=== PATIENT | male | born 1990 | race Caucasian/White ===

== ENCOUNTER 2018-09-11 10:54 | Emergency (ER) | payer BC ==
[~2018-09-11] VITALS: Ht 170.2 cm; Wt 83.9 kg
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
[2018-09-11] MEDS ORDERED: LEXAPRO (11:04)
[2018-09-11] MEDS ORDERED: CLOBETASOL (11:04)
[2018-09-11] MEDS ORDERED: DESONIDE (11:04)
--- NOTE | 2018-09-11 11:05 | NUR ---
JACKIE NICOLAS AT BEDSIDE FOR MSE.
[2018-09-11] MEDS ORDERED: TETRACAINE HCL 0.5% OPHT DROP 2 ML BOTTLE ONE (11:10)
[2018-09-11] MEDS ORDERED: FLUORESCEIN SODIUM 1 MG STRIP ONE (11:10)
--- NOTE | 2018-09-11 11:18 | NUR ---
PT TAKEN TO RADIOLOGY FOR CT SCAN.
--- NOTE | 2018-09-11 11:37 | NUR ---
PT BACK IN ER FROM RADIOLOGY.
--- NOTE | 2018-09-11 11:48 | NUR ---
JACKIE NICOLAS AT BEDSIDE FOR PT UPDATE.
--- NOTE | 2018-09-11 12:07 | NUR ---
Patient discharged to home in stable conditon. Written and verbal after care instructions given. Patient verbalizes understanding of instructions. ALL BELONGINGS W/ PT. PT SELF-AMBULATED W/O DIFFICULTY.
[2018-09-11 12:09] VITALS: BP 132/82
== END 2018-09-11 12:10 | disposition home or self-care (01) ==
LOC: ER 10:54
DX: S02.31XA Fracture of orbital floor, right side, initial encounter for closed fracture (principal); H11.31 Conjunctival hemorrhage, right eye; Z88.1 Allergy status to other antibiotic agents; Z79.899 Other long term (current) drug therapy; X50.0XXA Overexertion from strenuous movement or load, initial encounter; Y93.89 Activity, other specified; Y92.89 Other specified places as the place of occurrence of the external cause; Y99.8 Other external cause status
CPT/HCPCS: 70450; 70486; A4663